=== PATIENT | male | born 1985 | race Caucasian/White ===

== ENCOUNTER 2018-11-18 20:52 | Emergency (ER) | payer SELFPAY ==
[~2018-11-18] VITALS: Ht 175.3 cm; Wt 69.0 kg
[2018-11-18 21:17] VITALS: BP 143/91; PULSE 84; RESP 18; Ht 175.3 cm; Wt 69.0 kg
== END 2018-11-18 23:42 | disposition left against medical advice (07) ==
LOC: E/R 20:52
DX: Z53.21 Procedure and treatment not carried out due to patient leaving prior to being seen by health care provider (principal)